=== PATIENT | male | born 1990 | race African-American/Black ===

== ENCOUNTER 2021-07-07 11:00 | Outpatient (CLI) | payer SELFPAY ==
--- NOTE | 2021-07-07 16:57 | XRAY Report ---
PROCEDURE: Wrist 3 View RT INDICATIONS: R WRIST PX TECHNIQUE: 3 views of the wrist were acquired. COMPARISON: None. FINDINGS: Bones: Status post open reduction and internal fixation of distal right radial fracture. Associated h ealed fracture deformities. Corticated ossification over the distal ulnar styloid likely represents a ccessory ossicle versus fracture nonunion of remote injury. Mild degenerative changes of the distal r adiocarpal joint. No suspicious osseous lesions. Soft tissues: No suspicious soft tissue calcifications. IMPRESSION: Status post ORIF of the distal right radius with mild healed fracture deformities. No acute osseous abnormalities are dislocation. Mild distal radiocarpal joint degenerative changes. Reviewed by: Naeem Rosado MD on 07/07/2021 4:56 PM PST Approved by: Naeem Rosado MD on 07/07/2021 4:56 PM [facility] Station ID: [id number]
== END 2021-07-07 23:59 | disposition home or self-care (01) ==
LOC: DI.N 11:00
PROVIDERS: ATTEND Physician Assistant
DX: S52.501D Unspecified fracture of the lower end of right radius, subsequent encounter for closed fracture with routine healing (principal); M19.031 Primary osteoarthritis, right wrist